=== PATIENT | male | born 1950 | race Caucasian/White ===

== ENCOUNTER 2016-06-28 08:30 | Outpatient (CLI) | payer MEDICARE, OTHER | END 2016-06-28 08:31 | disposition home or self-care (01) | DX: E11.22 Type 2 diabetes mellitus with diabetic chronic kidney disease (principal); I12.9 Hypertensive chronic kidney disease with stage 1 through stage 4 chronic kidney disease, or unspecified chronic kidney disease; N18.4 Chronic kidney disease, stage 4 (severe); Z13.9 Encounter for screening, unspecified; I25.10 Atherosclerotic heart disease of native coronary artery without angina pectoris; R80.9 Proteinuria, unspecified; I48.91 Unspecified atrial fibrillation ==

== ENCOUNTER 2016-07-15 11:12 | Outpatient (CLI) | payer MEDICARE, OTHER ==
[2016-07-15] MEDS ORDERED: ADENOSINE 90 MG/30 ML VIAL IVP ONE (11:45)
== END 2016-07-15 11:13 | disposition home or self-care (01) ==
DX: Z01.810 Encounter for preprocedural cardiovascular examination (principal); I12.9 Hypertensive chronic kidney disease with stage 1 through stage 4 chronic kidney disease, or unspecified chronic kidney disease; N18.4 Chronic kidney disease, stage 4 (severe); I48.92 Unspecified atrial flutter
CPT/HCPCS: 78452; 93017; A9500; J0153

== ENCOUNTER 2017-07-29 15:22 | Outpatient (CLI) | payer MEDICARE, OTHER ==
[2017-07-30 10:21] LABS: HEPATITIS B SURFACE ANTIGEN NON-REACTIVE (NON-REACTIVE)
[2017-07-30 10:22] LABS: HEPATITIS C ANTIBODY NON-REACTIVE (NON-REACTIVE)
== END 2017-07-29 15:23 | disposition home or self-care (01) ==
LOC: LAB 15:22
PROVIDERS: ATTEND Internal Medicine Nephrology
DX: B19.10 Unspecified viral hepatitis B without hepatic coma (principal); B17.10 Acute hepatitis C without hepatic coma
CPT/HCPCS: 36415; 86317; 86704; 86803; 87340

== ENCOUNTER 2017-10-31 10:19 | Outpatient (CLI) | payer MEDICARE, OTHER | END 2017-10-31 10:20 | disposition critical access hospital (66) | LOC: EMS 10:19 | PROVIDERS: ATTEND Surgery | DX: R53.1 Weakness (principal); R41.0 Disorientation, unspecified; R29.810 Facial weakness; R47.81 Slurred speech | CPT/HCPCS: A0425; A0427 ==

== ENCOUNTER 2017-10-31 10:44 | Emergency (ER) | payer MEDICARE, OTHER ==
--- NOTE | 2017-10-31 10:58 | ED Physician Documentation ---
PD HPI FOCAL NEURO - Stated complaint Stated Complaint: R SIDED WEAKNESS - Chief complaint Chief Complaint: Neuro - History obtained from History obtained from: Patient, Family, EMS - History of Present Illness Timing - onset: Enter time, Today Timing - duration: Minutes Timing - details: Abrupt onset, Still present Severity of deficit: Moderate Weakness: Face, Arm, Hand, Leg, Foot, Right Associated symptoms: Fall. No: Nausea / vomiting, Seizure, Syncope, Chest pain , Neck pain, Back pain, Fever Contributing factors: positive: Anticoagulated Baseline status: positive: A&OX3, ambulatory, indep Similar symptoms before: Has not had sx before - Additional information Additional information: 67-year-old diabetic male on dialysis was last seen normal by his at 7:00 this morning. When she returned to the house at approximately 9 AM she had found that he had gotten out of bed appeared to have clawed at the dresser to try and stand up, and was found on the floor of the bathroom. He did not have any signs of obvious trauma but has obvious right sided deficit. He is on Coumadin and is scheduled to have dialysis done today. Review of Systems Unable to obtain: AMS, Other (The history is taken from the patient with the family present to confirm .) Constitutional: denies: Fever Eyes: denies: Decreased vision Ears: denies: Ear pain Nose: denies: Rhinorrhea / runny nose, Congestion Throat: denies: Sore throat Cardiac: denies: Chest pain / pressure, Palpitations Respiratory: denies: Dyspnea, Cough GI: denies: Abdominal Pain, Nausea, Vomiting, Constipation, Diarrhea : denies: Dysuria Skin: denies: Rash Musculoskeletal: denies: Neck pain, Back pain, Extremity pain Neurologic: reports: Focal weakness (today), Difficulty speaking (today), Altered mental status (today). denies: Generalized weakness PD PAST MEDICAL HISTORY - Past Medical History Cardiovascular: Congestive heart failure, Coronary artery disease Respiratory: CPAP use Endocrine/Autoimmune: Type 2 diabetes GI: None : Renal insuffiency HEENT: None Psych: None Musculoskeletal: Osteoarthritis Derm: None - Past Surgical History General: Appendectomy Ortho: Knee replacement, Other Cardiovascular: Coronary stent - Present Medications Home Medications: Ambulatory Orders Medication Instructions Recorded Confirmed Aspirin [Aspirin EC] 81 mg PO DAILY 09/05/14 03/03/15 Atorvastatin Calcium [Lipitor] 40 mg PO DAILY 09/05/14 03/03/15 Fenofibrate [Fenoglide] 0 mg PO DAILY 09/05/14 03/03/15 Furosemide [Lasix] 0 mg PO ONCE 09/05/14 03/03/15 Insulin Glargine [Lantus] 80 units SQ BID 09/05/14 03/03/15 Lisinopril 5 mg ORAL DAILY 09/05/14 03/03/15 Metoprolol Succinate 0 mg PO DAILY 09/05/14 03/03/15 Spironolactone 0 mg PO DAILY 09/05/14 03/03/15 oxyCODONE [Roxicodone] 5 mg PO DAILY PRN 12/02/14 03/03/15 - Allergies Allergies/Adverse Reactions: Allergies Allergy/AdvReac Type Severity Reaction Status Date / Time No Known Drug Allergies Allergy Unverified 09/05/14 13:08 - Social History Smoking Status: Former smoker PD ED PE NORMAL - Vitals Vital signs reviewed: Yes (hypertensive ) - General General: No acute distress, Well developed/nourished - HEENT HEENT: Atraumatic, PERRL, EOMI, Other (With deep palpation of the scalp there is no obvious sign of trauma. ) - Neck Neck: Supple, no meningeal sign, No bony TTP - Cardiac Cardiac: RRR, No murmur - Respiratory Respiratory: No respiratory distress, Clear bilaterally, Other (dminished breath sounds with poor effort. ) - Abdomen Abdomen: Soft, Non tender - Back Back: No CVA TTP, No spinal TTP - Derm Derm: Normal color, Warm and dry, No rash - Extremities Extremities: No deformity, No edema - Neuro Neuro: Other (The patient has a right facial droop, right upper ext weakness that is worse than the lower ext weakness. There is inattention ) NIHSS - Time Time: 10:50 - Level of Consciousness Level of consciousness: (0) Alert, Keenly responsive LOC Questions: (1) Answers one Q correctly LOC Commands: (1) Performs one correctly - Gaze Best Gaze: (0) Normal - Visual Visual: (0) No loss - Facial Palsy Facial Palsy: (1) Minor paralysis - Motor Arms (both separate) Motor Arm (right): (3) No effort against gravity Motor Arm (left): (0) No drift - Motor Legs (both separate) Motor Leg (right): (1) Drift Motor Leg (left): (0) No drift - Limb Ataxia Limb Ataxia: (1) Present in 1 limb - Sensory Sensory: (0) Normal - Best Language Best Language: (1) [id number] - Dysarthria Dysarthria: (0) Normal - Extinction and Inattention (formally neg Extinction and inattention: (1) Visual,tactile,auditory,spatial, or personal inattention - Total Score/Results Total Score/Result: 10 Results - Vitals Vitals: Vital Signs - 24 hr 10/31/17 10/31/17 10:45 11:16 Temperature 36.2 C L Heart Rate 84 66 Respiratory 21 18 Rate Blood Pressure 144/88 H 142/75 H O2 Saturation 94 71 L Oxygen O2 Source Room air - EKG (time done) 1145 Rate: Rate (enter#) (71) Rhythm: Atrial fibrillation Compare to prior EKG: Old EKG unavailable Computer interpretation: Disagree with computer (I do not see anterior q waves) - Labs Labs: Laboratory Tests 10/31/17 10/31/17 10/31/17 11:28 11:28 11:28 WBC 8.0 RBC 3.47 L Hgb 12.2 L Hct 36.5 L MCV 105.1 H MCH 35.1 H MCHC 33.4 RDW 14.7 Plt Count 197 MPV 9.4 Neut # (Auto) 5.5 Lymph # (Auto) 1.2 L Hemphill # (Auto) 0.8 Eos # (Auto) 0.3 Baso # (Auto) 0.1 Absolute Nucleated RBC 0.00 Nucleated RBC % 0.0 PT INR Sodium 135 Potassium 4.8 Chloride 102 Carbon Dioxide 22 Anion Gap 11.0 BUN 64 H Creatinine 5.9 H Estimated GFR (MDRD) 10 L Glucose 290 H Calcium 8.6 Total Bilirubin 0.6 AST 26 ALT 28 Alkaline Phosphatase 36 L Troponin I < 0.04 Total Protein 6.6 L Albumin 3.2 Globulin 3.4 Albumin/Globulin Ratio 0.9 L Lipase 59 H 10/31/17 11:55 WBC RBC Hgb Hct MCV MCH MCHC RDW Plt Count MPV Neut # (Auto) Lymph # (Auto) Hemphill # (Auto) Eos # (Auto) Baso # (Auto) Absolute Nucleated RBC Nucleated RBC % PT 24.7 H INR 2.3 H Sodium Potassium Chloride Carbon Dioxide Anion Gap BUN Creatinine Estimated GFR (MDRD) Glucose Calcium Total Bilirubin AST ALT Alkaline Phosphatase Troponin I Total Protein Albumin Globulin Albumin/Globulin Ratio Lipase - Rads (name of study) CT head without Radiology: Prelim report reviewed (Impression: Generalized age-related cortical atrophic changes without evidence of acute intracranial abnormality.), EMP read indepedently, See rad report Procedures - IVC sono (time) 1245 Bedside IVC sono: IVC measures (cm) (1.67), Euvolemia PD MEDICAL DECISION MAKING - ED course Complexity details: reviewed old records, reviewed results, re-evaluated patient , considered differential, d/w patient, d/w family ED course: 67-year-old diabetic male on dialysis and with a history of atrial fibrillation on Coumadin has developed acute right-sided weakness and expressive aphasia. He is therapeutic on his Coumadin he is not a candidate for TPA. He does appear to have normal volume on interrogation of the inferior vena cava despite his diabetes being out of control. The patient does score over 10 on his NIH stroke scale and I discussed his stay case with Dr. Topete at [facility] in [place] and he will accept the patient in transfer for poststroke care and requested we contact Dr. Abdi regarding the patient's dialysis. The patient has improvement in his symptoms after arrival to the ED. - Sepsis Event Vital Signs: Vital Signs - 24 hr 10/31/17 10/31/17 10:45 11:16 Temperature 36.2 C L Heart Rate 84 66 Respiratory 21 18 Rate Blood Pressure 144/88 H 142/75 H O2 Saturation 94 71 L Oxygen O2 Source Room air Departure - Departure Disposition: 02 Transfer Acute Care Hosp Clinical Impression: Cerebrovascular accident (CVA) Qualifiers: CVA mechanism: unspecified Qualified Code(s): I63.9 - Cerebral infarction, unspecified Condition: Stable Discharge Date/Time: 10/31/17 14:21
--- NOTE | 2017-10-31 11:35 | CT Preliminary Report ---
Exam: CT HEAD W/O IMPRESSION: Generalized age-related cortical atrophic changes without evidence of acute intracranial abnormality. [facility] SITE ID: [id number]
--- NOTE | 2017-10-31 11:35 | CT Report ---
EXAM: CT HEAD EXAM DATE: 10/31/2017 11:09 AM. CLINICAL HISTORY: R SIDED deficit on coumadin. COMPARISON: None. TECHNIQUE: Multiaxial CT images were obtained from the foramen magnum to the vertex. Reformats: Coron al. IV contrast: None. In accordance with CT protocol optimization, one or more of the following dose reduction techniques w ere utilized for this exam: automated exposure control, adjustment of mA and/or KV based on patient s ize, or use of iterative reconstructive technique. FINDINGS: Parenchyma: No intraparenchymal hemorrhage. No evidence of mass, midline shift, or CT findings of acu te infarction. Joseph-white differentiation is distinct. Diffuse chronic microangiopathic white matter changes are evident. Extraaxial Spaces: Normal for age. No subdural or epidural collections identified. Ventricles: The ventricles and cortical sulci are enlarged, consistent with age-related tissue loss. Sinuses and orbits: Right maxillary retention cyst or mucosal thickening left maxillary sinus Imaged orbits, and mastoids show no significant abnormality. Bones: No evidence of fracture or calvarial defect. Other: None. IMPRESSION: Generalized age-related cortical atrophic changes without evidence of acute intracranial abnormality. [facility] Referring Provider Line: [phone] SITE ID: [id number]
[2017-10-31 11:42] LABS: BASOPHILS # (AUTO) 0.1 10^3/uL (0.0-0.1); BASOPHILS % (AUTO) 1.1 %; EOSINOPHILS # (AUTO) 0.3 10^3/uL (0.0-0.7); EOSINOPHILS % (AUTO) 3.8 %; HGB - HEMOGLOBIN 12.2 g/dL (14.0-18.0); LYMPHOCYTES # (AUTO) 1.2 10^3/uL (1.5-3.5); LYMPHOCYTES % (AUTO) 15.7 %; MEAN CORPUSCULAR HEMOGLOBIN 35.1 pg (27.0-31.0); MEAN CORPUSCULAR HGB CONC 33.4 g/dL (32.0-36.0); MEAN CORPUSCULAR VOLUME 105.1 fL (80.0-94.0); MEAN PLATELET VOLUME 9.4 fL (7.4-11.4); MONOCYTES # (AUTO) 0.8 10^3/uL (0.0-1.0); NEUTROPHILS # (AUTO) 5.5 10^3/uL (1.5-6.6); NEUTROPHILS % (AUTO) 69.4 %; PLT - PLATELET COUNT 197 10^3/uL (130-450); RED BLOOD COUNT 3.47 10^6/uL (4.70-6.10); RED CELL DISTRIBUTION WIDTH 14.7 % (12.0-15.0)
[2017-10-31 11:46] VITALS: BP 142/75
[2017-10-31 12:05] LABS: ALBUMIN 3.2 g/dL (3.2-5.5); ALBUMIN/GLOBULIN RATIO 0.9 (1.0-2.2); BILIRUBIN,TOTAL 0.6 mg/dL (0.2-1.0); CALCIUM 8.6 mg/dL (8.5-10.3); CREATININE 5.9 mg/dL (0.6-1.2); TOTAL PROTEIN 6.6 g/dL (6.7-8.2)
[2017-10-31 12:08] LABS: INR 2.3 (0.8-1.2); PT - PROTHROMBIN TIME 24.7 secs (9.9-12.6)
== END 2017-10-31 14:21 | disposition short-term general hospital (02) ==
LOC: EDUNIT# → ED 10:44
DX: I63.9 Cerebral infarction, unspecified (principal); E86.0 Dehydration; E11.9 Type 2 diabetes mellitus without complications; I25.10 Atherosclerotic heart disease of native coronary artery without angina pectoris; I48.91 Unspecified atrial fibrillation; Z79.4 Long term (current) use of insulin; Z95.5 Presence of coronary angioplasty implant and graft; Z96.659 Presence of unspecified artificial knee joint; Z87.891 Personal history of nicotine dependence
CPT/HCPCS: 36415; 70450; 80053; 83690; 84484; 85025; 85610; 93005; 99285

== ENCOUNTER 2017-10-31 14:27 | Outpatient (CLI) | payer MEDICARE, OTHER | END 2017-10-31 14:28 | disposition home or self-care (01) | LOC: EMS 14:27 | PROVIDERS: ATTEND Surgery | DX: I63.9 Cerebral infarction, unspecified (principal); Z99.2 Dependence on renal dialysis | CPT/HCPCS: A0170; A0425; A0426 ==

== ENCOUNTER 2018-01-01 15:58 | Emergency (ER) | payer MEDICARE, OTHER ==
--- NOTE | 2018-01-01 16:50 | ED Physician Documentation ---
History of Present Illness - Stated complaint Stated Complaint: BLISTER R FOOT - Chief complaint Chief Complaint: Ext Problem - History obtained from History obtained from: Patient - History of Present Illness Timing: How many weeks ago (2) Pain level max: 0 Pain level now: 0 Improved by: nothing Worsened by: nothing - Additonal information Additional information: 67 year old male with R ankle blister for 2 weeks. he is a diabetic and on dialysis. states the blister ruptured today. Sees wound care at [facility]. states drained clear liquid today. Family placed ointment over the wound today. No fevers. Recently was placed on doxycycline for wound infection. Review of Systems Constitutional: denies: Fever, Chills GI: denies: Vomiting Skin: denies: Rash Musculoskeletal: denies: Neck pain, Back pain Neurologic: denies: Headache PD PAST MEDICAL HISTORY - Past Medical History Cardiovascular: Congestive heart failure, Coronary artery disease Respiratory: CPAP use Endocrine/Autoimmune: Type 2 diabetes GI: None : Renal insuffiency HEENT: None Psych: None Musculoskeletal: Osteoarthritis Derm: None - Past Surgical History Past Surgical History: Yes General: Appendectomy Ortho: Knee replacement, Other Cardiovascular: Coronary stent - Present Medications Home Medications: Ambulatory Orders Medication Instructions Recorded Confirmed Aspirin [Aspirin EC] 81 mg PO DAILY 09/05/14 03/03/15 Atorvastatin Calcium [Lipitor] 40 mg PO DAILY 09/05/14 03/03/15 Fenofibrate [Fenoglide] 0 mg PO DAILY 09/05/14 03/03/15 Furosemide [Lasix] 0 mg PO ONCE 09/05/14 03/03/15 Insulin Glargine [Lantus] 80 units SQ BID 09/05/14 03/03/15 Lisinopril 5 mg ORAL DAILY 09/05/14 03/03/15 Metoprolol Succinate 0 mg PO DAILY 09/05/14 03/03/15 Spironolactone 0 mg PO DAILY 09/05/14 03/03/15 oxyCODONE [Roxicodone] 5 mg PO DAILY PRN 12/02/14 03/03/15 - Allergies Allergies/Adverse Reactions: Allergies Allergy/AdvReac Type Severity Reaction Status Date / Time No Known Drug Allergies Allergy Verified 01/01/18 16:14 - Social History Does the pt smoke?: No Smoking Status: Never smoker PD ED PE NORMAL - Vitals Vital signs reviewed: Yes - General General: Alert and oriented X 3 - HEENT HEENT: Moist mucous membranes - Neck Neck: Supple, no meningeal sign - Derm Derm: Warm and dry - Extremities Extremities: Other (R lateral malleolus, small open blister. NVI. no signs of infection. 0.2cm x 0.2cm) - Neuro Neuro: Alert and oriented X 3 - Psych Psych: Normal mood, Normal affect Results - Vitals Vitals: Vital Signs - 24 hr 01/01/1818 01/01/18 16:08 16:37 17:10 Temperature 37.5 C 37.2 C Heart Rate 84 85 Respiratory 18 18 Rate Blood Pressure 147/63 H 124/41 L O2 Saturation 100 100 Oxygen O2 Source Room air PD MEDICAL DECISION MAKING - ED course Complexity details: considered differential, d/w patient, d/w family ED course: Patient is a 67-year-old male with a small the right ankle. No evidence of infection. The wound is approximately 0.2 cm. Mepitel is placed over the area and bacitracin applied. Warnings of infection and instructions on wound care given at bedside. Patient and family counseled regarding signs and symptoms for which I believe and urgent re-evaluation would be necessary. Patient with good understanding of and agreement to plan and is comfortable going home at this time This document was made in part using voice recognition software. While efforts are made to proofread this document, sound alike and grammatical errors may occur. - Sepsis Event Vital Signs: Vital Signs - 24 hr 01/01/1818 01/01/18 16:08 16:37 17:10 Temperature 37.5 C 37.2 C Heart Rate 84 85 Respiratory 18 18 Rate Blood Pressure 147/63 H 124/41 L O2 Saturation 100 100 Oxygen O2 Source Room air Departure - Departure Disposition: 01 Home, Self Care Clinical Impression: Blister Condition: Good Instructions: ED Wound Care Follow-Up: JEVON LOUIS MD [Primary Care Provider] - Within 1 week Comments: You can use the mupirocin twice a day over the wound. Leave the mepitel in place until seen by wound care. Return if you notice redness, swelling or drainage from the wound. Discharge Date/Time: 01/01/18 17:14
[2018-01-01] MEDS ORDERED: BACITRACIN OINT TOP STA (17:03)
[2018-01-01 17:11] VITALS: BP 124/41
== END 2018-01-01 17:14 | disposition home or self-care (01) ==
LOC: ED 15:58
DX: S90.521A Blister (nonthermal), right ankle, initial encounter (principal)
CPT/HCPCS: 99282; 99283; A9270

== ENCOUNTER 2019-05-14 09:35 | Outpatient (CLI) | payer MEDICARE, OTHER ==
--- NOTE | 2019-05-15 07:00 | CT Report ---
Reason: LT SHOULDER PAIN Procedure Date: 05/14/2019 Accession Number: [id number] / [id number] Procedure: CT - UPPER EXTREMITY WO - LT CPT Code: Final Report FULL RESULT: EXAM: LEFT ELBOW CT WITHOUT CONTRAST. EXAM DATE: 05/14/2019 11:37 AM. CLINICAL HISTORY: Left shoulder pain chronically. Preoperative for shoulder arthroplasty. COMPARISON: None. TECHNIQUE: Thin-section axial images were acquired of the elbow without contrast. Post-processing: Coronal and sagittal reformats. Other: None. In accordance with CT protocol optimization, one or more of the following dose reduction techniques were utilized for this exam: automated exposure control, adjustment of mA and/or KV based on patient size, or use of iterative reconstructive technique. FINDINGS: Bones: Moderate osteopenia limits evaluation for subtle bony abnormalities. The patient has volume loss of the glenoid due to [id number] articulation. There is acquired retroversion of 22 degrees. No fractures. Joints: The glenohumeral joint demonstrates severe joint space narrowing and osteophyte formation. Mild periarticular sclerosis present. The acromioclavicular joint demonstrates severe osteoarthropathy with bony spurring and capsular calcification. In particular, there is a prominent inferiorly directed osteophyte from the distal clavicle. Multiple loose bodies are in the glenohumeral joint. Musculature: Normal. No fatty atrophy. Other: None. IMPRESSION: 1. Severe glenohumeral osteoarthritis. 2. Severe acromioclavicular osteoarthropathy. [facility]
== END 2019-05-14 09:36 | disposition home or self-care (01) ==
LOC: DI 09:35
PROVIDERS: ATTEND Orthopaedic Surgery
DX: M19.012 Primary osteoarthritis, left shoulder (principal)

== ENCOUNTER 2019-10-06 18:29 | Outpatient (CLI) | payer MEDICARE, OTHER | END 2019-10-06 18:30 | disposition critical access hospital (66) | LOC: EMS 18:29 | PROVIDERS: ATTEND Surgery | DX: S09.90XA Unspecified injury of head, initial encounter (principal); S01.511A Laceration without foreign body of lip, initial encounter; W01.110A Fall on same level from slipping, tripping and stumbling with subsequent striking against sharp glass, initial encounter; W22.8XXA Striking against or struck by other objects, initial encounter | CPT/HCPCS: A0425; A0429 ==

== ENCOUNTER 2019-10-06 18:51 | Emergency (ER) | payer MEDICARE, OTHER ==
[2019-10-06] MEDS ORDERED: LIDOCAINE 2%-EPI 1:100000 20 ML MDV SUBQ STA (19:21)
[2019-10-06] MEDS ORDERED: TRANEXAMIC ACID 1,000 MG/10 ML VIAL NAS STA (19:42)
--- NOTE | 2019-10-06 20:03 | CT Report ---
Reason: fall, facial injuries, LOC Procedure Date: 10/06/2019 Accession Number: [id number] / [id number] Procedure: CT - HEAD WO CPT Code: Final Report FULL RESULT: EXAM: CT HEAD EXAM DATE: 10/06/2019 07:30 PM. CLINICAL HISTORY: Fall. Facial injuries. Loss of consciousness. COMPARISON: HEAD W/O 10/31/2017 10:59 AM. TECHNIQUE: Multiaxial CT images were obtained from the foramen magnum to the vertex. Reformats: Sagittal and coronal. IV contrast: None. In accordance with CT protocol optimization, one or more of the following dose reduction techniques were utilized for this exam: automated exposure control, adjustment of mA and/or KV based on patient size, or use of iterative reconstructive technique. FINDINGS: Parenchyma: No intraparenchymal hemorrhage. Old cortical infarct, upper left frontal lobe. No evidence of mass, midline shift, or CT findings of acute infarction. Joseph-white differentiation is distinct. Stable mild chronic microangiopathic white matter changes are evident. Extraaxial Spaces: Normal for age. No subdural or epidural collections identified. Ventricles: The ventricles and cortical sulci are prominent, consistent with age-related tissue loss. Sinuses and orbits: Imaged paranasal sinuses, orbits, and mastoids show no significant abnormality. Bones: No evidence of fracture or calvarial defect. Other: None. IMPRESSION: Stable age-related cortical atrophic changes without evidence of acute intracranial abnormality. [facility]
[2019-10-06] MEDS ORDERED: LORazepam 2 MG/ML VIAL IVP STA (20:21)
[2019-10-06] MEDS ORDERED: MORPHINE 2 MG/ML CARPUJECT IVP STA (20:21)
--- NOTE | 2019-10-06 20:23 | CT Report ---
Reason: fall, facial injuries Procedure Date: 10/06/2019 Accession Number: [id number] / [id number] Procedure: CT - MAXILLOFACIAL WO CPT Code: Final Report FULL RESULT: EXAM: CT MAXILLOFACIAL WITHOUT CONTRAST EXAM DATE: 10/06/2019 07:49 PM. CLINICAL HISTORY: Fall, facial injuries. COMPARISONS: HEAD W/O 10/31/2017 10:59 AM. TECHNIQUE: Thin-section axial images were acquired of the face without contrast. Post-processing: Coronal and sagittal reformats. Other: None. In accordance with CT protocol optimization, one or more of the following dose reduction techniques were utilized for this exam: automated exposure control, adjustment of mA and/or KV based on patient size, or use of iterative reconstructive technique. FINDINGS: Soft Tissue: The infratemporal fossa and parapharyngeal spaces are unremarkable. Right cheek subcutaneous air collections noted. Extensive small artery calcifications noted likely secondary to diabetic vasculopathy. Orbits: Symmetric and unremarkable. Bones: There is a fracture through the base of the anterior nasal spine. A nondisplaced left nasal bone fracture is also seen. No other facial bone fractures. Temporomandibular Joints: There is slight anterior subluxation of the temporomandibular joints. Sinuses: Normal. No mucosal thickening or fluid levels. Other: None. IMPRESSION: Nondisplaced base of anterior nasal spine and left nasal bone fractures. [facility]
[2019-10-06] MEDS ORDERED: LORazepam 2 MG/ML VIAL ONE (20:26)
[2019-10-06] MEDS ORDERED: MORPHINE 2 MG/ML CARPUJECT ONE (20:26)
[2019-10-06 20:48] LABS: BASOPHILS # (AUTO) 0.1 10^3/uL (0.0-0.1); BASOPHILS % (AUTO) 0.7 %; EOSINOPHILS # (AUTO) 0.3 10^3/uL (0.0-0.7); EOSINOPHILS % (AUTO) 3.1 %; LYMPHOCYTES # (AUTO) 1.4 10^3/uL (1.5-3.5); LYMPHOCYTES % (AUTO) 12.6 %; MEAN CORPUSCULAR HEMOGLOBIN 35.1 pg (27.0-31.0); MEAN CORPUSCULAR HGB CONC 32.8 g/dL (32.0-36.0); MEAN PLATELET VOLUME 11.2 fL (7.4-11.4); MONOCYTES # (AUTO) 1.1 10^3/uL (0.0-1.0); MONOCYTES % (AUTO) 9.6 %; NEUTROPHILS # (AUTO) 8.1 10^3/uL (1.5-6.6); NEUTROPHILS % (AUTO) 73.5 %; PLT - PLATELET COUNT 233 10^3/uL (130-450); RED BLOOD COUNT 2.85 10^6/uL (4.70-6.10)
[2019-10-06 21:01] LABS: ALBUMIN 3.7 g/dL (3.2-5.5); ALBUMIN/GLOBULIN RATIO 1.4 (1.0-2.2); BILIRUBIN,TOTAL 0.8 mg/dL (0.2-1.0); CALCIUM 8.2 mg/dL (8.5-10.3); TOTAL PROTEIN 6.4 g/dL (6.7-8.2)
--- NOTE | 2019-10-06 21:27 | ED Physician Documentation ---
History of Present Illness - Stated complaint Stated Complaint: GLF, FACIAL INJURY, LOC, LEG WEAKNESS - Chief complaint Chief Complaint: Trauma Hd/Nk - History obtained from History obtained from: Patient, EMS - History of Present Illness Timing: Today Pain level max: 6 Pain level now: 5 - Additonal information Additional information: 69-year-old male states that he tripped and fell today crashing through a pain of glass. Causing lacerations to his mouth. No neck pain. No back pain. No focal neurological deficits. He states he has had increasing numbness to the right foot for some time and feels that it is starting to turn. He had a fusion on this foot several years ago. Review of Systems Ten Systems: 10 systems reviewed and negative Constitutional: denies: Fever, Chills Ears: denies: Ear pain Nose: denies: Rhinorrhea / runny nose, Congestion Throat: denies: Sore throat Cardiac: denies: Chest pain / pressure Respiratory: denies: Cough GI: denies: Abdominal Pain, Nausea, Vomiting, Diarrhea Skin: denies: Rash Musculoskeletal: denies: Back pain Neurologic: denies: Focal weakness, Numbness, Confused, Altered mental status, LOC PD PAST MEDICAL HISTORY - Past Medical History Past Medical History: Yes Cardiovascular: Congestive heart failure, Coronary artery disease Respiratory: CPAP use Endocrine/Autoimmune: Type 2 diabetes GI: None : Dialysis, Renal insuffiency HEENT: None Psych: None Musculoskeletal: Osteoarthritis Derm: None - Past Surgical History Past Surgical History: Yes General: Appendectomy Ortho: Knee replacement, Other Cardiovascular: Coronary stent - Present Medications Home Medications: Ambulatory Orders Medication Instructions Recorded Confirmed Aspirin [Aspirin EC] 81 mg PO DAILY 09/05/14 03/03/15 Atorvastatin Calcium [Lipitor] 40 mg PO DAILY 09/05/14 03/03/15 Fenofibrate [Fenoglide] 0 mg PO DAILY 09/05/14 03/03/15 Furosemide [Lasix] 0 mg PO ONCE 09/05/14 03/03/15 Insulin Glargine [Lantus] 80 units SQ BID 09/05/14 03/03/15 Metoprolol Succinate 0 mg PO DAILY 09/05/14 03/03/15 Spironolactone 0 mg PO DAILY 09/05/14 03/03/15 lisinopriL [Lisinopril] 5 mg ORAL DAILY 09/05/14 03/03/15 oxyCODONE [Roxicodone] 5 mg PO DAILY PRN 12/02/14 03/03/15 Cephalexin [Keflex] 500 mg PO BID #14 capsule 10/06/19 Chlorhexidine Gluconate 15 ml MM BID 14 Days #1 mouthwash 10/06/19 amLODIPine [Norvasc] 10 mg PO DAILY 10/06/19 10/06/19 - Allergies Allergies/Adverse Reactions: Allergies Allergy/AdvReac Type Severity Reaction Status Date / Time No Known Drug Allergies Allergy Verified 01/01/18 16:14 - Social History Does the pt smoke?: No Smoking Status: Never smoker Does the pt drink ETOH?: No Does the pt have substance abuse?: No - Immunizations Immunizations are current?: Yes PD ED PE NORMAL - Vitals Vital signs reviewed: Yes - General General: Alert and oriented X 3, No acute distress - HEENT HEENT: Atraumatic, PERRL, Moist mucous membranes, Other (Complex laceration to the upper and lower lips. Bleeding present. Mild tenderness across the facial bones. No scalp hematomas.) - Neck Neck: Supple, no meningeal sign - Cardiac Cardiac: RRR - Respiratory Respiratory: No respiratory distress, Clear bilaterally - Derm Derm: Warm and dry - Neuro Neuro: Alert and oriented X 3, care rep 2-12 intact, No motor deficit, No sensory deficit Motor: Obeys Commands Verbal: Oriented - Psych Psych: Normal mood, Normal affect Results - Vitals Vitals: Vital Signs - 24 hr 10/06/19 10/06/19 18:55 22:08 Temperature 36.5 C Heart Rate 79 68 Respiratory 18 18 Rate Blood Pressure 144/101 H 139/59 H O2 Saturation 99 98 Oxygen O2 Source Room air - Labs Labs: Laboratory Tests 10/06/19 10/06/19 10/06/19 20:40 20:40 21:57 WBC 11.0 H RBC 2.85 L Hgb 10.0 L Hct 30.5 L MCV 107.0 H MCH 35.1 H MCHC 32.8 RDW 13.0 Plt Count 233 MPV 11.2 Neut # (Auto) 8.1 H Lymph # (Auto) 1.4 L [place] # (Auto) 1.1 H Eos # (Auto) 0.3 Baso # (Auto) 0.1 Absolute Nucleated RBC 0.00 Nucleated RBC % 0.0 Sodium 139 Potassium 4.5 Chloride 100 L Carbon Dioxide 24 Anion Gap 15.0 H BUN 57 H Creatinine 6.0 H Estimated GFR (MDRD) 9 L Glucose 199 H Calcium 8.2 L Total Bilirubin 0.8 AST 32 ALT 28 Alkaline Phosphatase 40 L Total Protein 6.4 L Albumin 3.7 Globulin 2.7 Albumin/Globulin Ratio 1.4 Lipase 44 Urine Color YELLOW Urine Clarity CLEAR Urine pH 7.0 Ur Specific [place] 1.015 Urine Protein 100 H Urine Glucose (UA) 500 H Urine Ketones NEGATIVE Urine Occult Blood MODERATE H Urine Nitrite NEGATIVE Urine Bilirubin NEGATIVE Urine Urobilinogen 0.2 (NORMAL) Ur Leukocyte Esterase NEGATIVE Urine RBC 6-10 H Urine WBC 0-3 Ur Squamous Epith Cells RARE Squamous Urine Bacteria Rare Urine Casts 6-10 Hyaline Casts Ur Microscopic Review INDICATED Urine Culture Comments NOT INDICATED - Rads (name of study) Head CT Radiology: Prelim report reviewed, EMP read contemporaneously, See rad report (Stable age-related cortical atrophic changes without evidence of acute intracranial abnormality. ) Maxillofacial CT Radiology: Prelim report reviewed, EMP read contemporaneously, See rad report (Nondisplaced base of anterior nasal spine and left nasal bone fractures. ) PD MEDICAL DECISION MAKING - ED course Complexity details: reviewed results, re-evaluated patient, considered differential, d/w patient, d/w programmer analyst consultant (Dr. Smith [facility]) ED course: Patient with a complicated intraoral laceration, upper and lower lips. OMFS was consulted, Dr. Smith came and repaired the lacerations. Patient tolerated well. Will place on Keflex as well as chlorhexidine rinses. Tetanus is up-to-date. No acute findings on CT scan or x-ray. Warnings of infection and instructions on wound care given at bedside. Also counseled on how to minimize scarring. Patient counseled regarding signs and symptoms for which I believe and urgent re-evaluation would be necessary. Patient with good understanding of and agreement to plan and is comfortable going home at this time This document was made in part using voice recognition software. While efforts are made to proofread this document, sound alike and grammatical errors may occur. Departure - Departure Disposition: 01 Home, Self Care Clinical Impression: Lip laceration Qualifiers: Encounter type: initial encounter Qualified Code(s): S01.511A - Laceration without foreign body of lip, initial encounter Intraoral laceration Qualifiers: Encounter type: initial encounter Qualified Code(s): S01.512A - Laceration without foreign body of oral cavity, initial encounter Nasal fracture Qualifiers: Encounter type: initial encounter Fracture type: closed Qualified Code(s): S02.2XXA - Fracture of nasal bones, initial encounter for closed fracture Condition: Good Instructions: ED Laceration Mouth Follow-Up: your,doctor in 1 week [Other] KADEN SMITH [Physician No Access] - Within 1 week Prescriptions: Cephalexin [Keflex] 500 mg PO BID #14 capsule Chlorhexidine Gluconate 15 ml MM BID 14 Days #1 mouthwash Comments: Follow-up with Dr. Smith within 1 week for repeat evaluation of your wounds and stitches. Call his office for an appointment. Return if you worsen. Take all antibiotics until gone. Discharge Date/Time: 10/06/19 22:10
--- NOTE | 2019-10-06 21:44 | CONSULTATION NOTE ---
Referring Provider Name of Referring Provider:: Arsalan Mathews Consult Date: 10/06/19 Chief Complaint - Chief Complaint Chief Complaint: Bleeding from mouth History of Present Illness - Admitted From Admitted From:: ER - History Obtained From Records Reviewed: Yes History obtained from: Dr. Mathews and Guicho History - Past Medical History Cardiovascular: reports: Congestive heart failure, Coronary artery disease Respiratory: reports: CPAP use Endocrine/Autoimmune: reports: Type 2 diabetes GI: reports: None : reports: Dialysis, Renal insuffiency HEENT: reports: None Psych: reports: None Musculoskeletal: reports: Osteoarthritis Derm: reports: None MRSA Hx?: No - Past Surgical History General: reports: Appendectomy Ortho: reports: Knee replacement, Other Cardiovascular: reports: Coronary stent Meds/Allgy - Home Medications Home Medications: Ambulatory Orders Medication Instructions Recorded Confirmed Aspirin [Aspirin EC] 81 mg PO DAILY 09/05/14 03/03/15 Atorvastatin Calcium [Lipitor] 40 mg PO DAILY 09/05/14 03/03/15 Fenofibrate [Fenoglide] 0 mg PO DAILY 09/05/14 03/03/15 Furosemide [Lasix] 0 mg PO ONCE 09/05/14 03/03/15 Insulin Glargine [Lantus] 80 units SQ BID 09/05/14 03/03/15 Metoprolol Succinate 0 mg PO DAILY 09/05/14 03/03/15 Spironolactone 0 mg PO DAILY 09/05/14 03/03/15 lisinopriL [Lisinopril] 5 mg ORAL DAILY 09/05/14 03/03/15 oxyCODONE [Roxicodone] 5 mg PO DAILY PRN 12/02/14 03/03/15 Cephalexin [Keflex] 500 mg PO BID #14 capsule 10/06/19 Chlorhexidine Gluconate 15 ml MM BID 14 Days #1 mouthwash 10/06/19 Chlorhexidine Gluconate [Peridex] 15 ml MM ACHS #1 bottle 10/06/19 amLODIPine [Norvasc] 10 mg PO DAILY 10/06/19 10/06/19 - Allergies Allergies/Adverse Reactions: Allergies Allergy/AdvReac Type Severity Reaction Status Date / Time No Known Drug Allergies Allergy Verified 01/01/18 16:14 Review of Systems - Ears, Nose & Throat Ears, Nose & Throat: reports: Other (bleeding coughing and gaggin on blood in throat) Exam - Vital Signs Reviewed Vital Signs: Yes Vital Signs: Vital Signs x48h Temp Pulse Resp BP Pulse Ox 10/06/19 18:55 36.5 C 79 18 144/101 H 99 - Physical Exam General Appearance: positive: No acute distress Eyes Bilateral: positive: PERRL, EOMI ENT: positive: Other (Right upper lip complex full thickness laceration, 4cm total length Right lower lip complex full thickness laceration, 2 cm total length Active bleeding from the upper lip. The laceration skives superiorly and posteriorly and involves the alveolus. Significant ecchymosis.) Neck: positive: Nml inspection, No JVD Respiratory: positive: Chest non-tender, No respiratory distress Cardiovascular: positive: Regular rate & rhythm Abdomen: positive: Non-tender, No distention Skin: positive: Color nml Extremities: positive: Other (AV fistula LUE, for dialysis) Neurologic/Psychiatric: positive: Oriented x3, CN's nml (2-12) (Cranial nerves are intact with exception of R V2 numbness) Conclusion/Plan - Diagnosis Diagnosis: Facial lacerations - Plan Plan: CT max/face: There is a mildly displaced fracture of the anterior nasal spine. No AF levels in the sinuses. There is moderate subq air in the R maxilla associated w/ the lacerations. No foreign bodies. No other fractures noted. \ Assessment: 69 yo M s/p GLF sustaining the following maxillofacial injuries: 1. 4cm complex full thickness laceration of the R upper lip, involving the gaston and intraoral mucosa 2. 2 cm complex full thickness laceration of the R lower lip, involving the gaston and intraoral mucosa 3. Mildly displaced fracture of the anterior nasal spine 4. Uncontrolled bleeding from the right maxillary wound P: Bedside closure of lacerations with local anesthesia and control of bleeding. No operative management of the ANS anticipated. - ok for d/c to home after lac repair from OMFS standpoint - f/u in 1-2 weeks in my clinic for suture removal and reeval - PO abx - chlorhexidine mouthrinse bid Thank you for including me in the care of this patient, please feel free to call with any questions. Filippo Dill DDS [phone] - Lab Results Fish Bones: 10/06/19 20:40 10/06/19 20:40
[2019-10-06 22:08] VITALS: BP 139/59
[2019-10-06 22:11] LABS: BILIRUBIN,URINE NEGATIVE (NEGATIVE); GLUCOSE, URINE (UA) 500 mg/dL (NEGATIVE); KETONES,URINE (UA) NEGATIVE (NEGATIVE); LEUKOCYTE ESTERASE, URINE NEGATIVE (NEGATIVE); NITRITE,URINE NEGATIVE (NEGATIVE); OCCULT BLOOD,URINE MODERATE (NEGATIVE); PROTEIN,URINE 100 mg/dL (NEGATIVE); UROBILINOGEN,URINE 0.2 (NORMAL) E.U./dL (NORMAL)
[2019-10-06 22:12] LABS: CLARITY,URINE CLEAR (CLEAR)
[2019-10-06 22:18] LABS: BACTERIA,URINE Rare /HPF (None Seen); CASTS, URINE 6-10 Hyaline Casts /LPF; SQUAMOUS EPITHELIAL CELL,UR RARE Squamous (<= Few)
--- NOTE | 2019-10-07 04:24 | OPERATIVE REPORT ---
DATE OF SERVICE: 10/06/2019 Physician: Filippo Dill DDS PREOPERATIVE DIAGNOSES 1. A 4 cm, full thickness, complex laceration of the right upper lip involving the vermilion border and mucosa. 2. A 2 cm full thickness, complex laceration of the right lower lip involving the vermilion and intr aoral mucosa. 3. Uncontrolled bleeding from the right maxillary wound. POSTOPERATIVE DIAGNOSES 1. A 4 cm, full thickness, complex laceration of the right upper lip involving the vermilion border and mucosa. 2. A 2 cm full thickness, complex laceration of the right lower lip involving the vermilion and intr aoral mucosa. 3. Uncontrolled bleeding from the right maxillary wound. PROCEDURE PERFORMED 1. Control of bleeding from right maxillary wound with local surgical techniques. 2. Wound washout and layered closure of a 4 cm complex laceration of the right upper lip, involving the vermilion and the intraoral mucosa. 3. Wash out of wound in layered closure of the right lower lip laceration, 2 cm in length, complex, full thickness. PRIMARY SURGEON: Filippo Dill DDS LOCATION OF PROCEDURE: Emergency room. ANESTHESIA TYPE: Local anesthesia only. DRAINS, PACKS, CATHETERS: None. COMPLICATIONS: None. ESTIMATED BLOOD LOSS: 300 mL of total blood loss from the time the patient arrived in the emergency room, judging based off the amount of blood in the suction container on the wall. INDICATIONS FOR PROCEDURE: Patient is a 69-year-old male who was at his home when he felt numbness i n his leg, resulting in a fall. He struck his face on a furniture object or a shelf in his house michaela t had a safety glass covering; however, the glass did not cause a laceration. He believes it was a p iece of wood from the furniture that caused the laceration. Afterwards, he noticed a large amount of bleeding and, because of the bleeding, he lost consciousness. From his report, it sounds like vasov agal syncope. He was brought to the emergency room by ambulance, and was evaluated and OMFS was cons ulted for evaluation and management of the lacerations. It was decided that control of the bleeding was indicated, as well as repair of the lacerations. The risks, benefits and alternatives of this pl an were discussed with patient including pain, bleeding, swelling, infection, need for further surger y, scarring, permanent numbness, difficulty with speech. Adequate time was given to answer all quest ions and informed consent was obtained. DESCRIPTION OF PROCEDURE: The patient was encountered in the emergency room in a supine position. T he head of his bed was reclined to about 20 degrees, and the patient's hands, chest, neck and face we re initially cleansed while gauze was packed onto the wound to slow the bleeding. The mouth was suct ioned of blood and, once the patient was mostly clean and an IV was started and he was a little bit m ore relaxed, then we proceeded with the local anesthesia. Local anesthesia was achieved with 2% lido lacie with 1:100,000 epinephrine x7 mL. Interestingly, he did not feel any of the injection in the m axilla, at least not in the right V2 area, and this seemed to indicate that the patient had injured h is infraorbital nerve on the right causing this numbness. At this point, a formal timeout was execut ed. The patient's wounds were then washed out extensively with copious amounts of sterile saline bernabe ution, taking care to suction this from the mouth and allow the patient to remain comfortable, and no t cough and sputter too much on the fluid as we washed out his wounds. Attention was first directed to the right upper lip. The bleeding area was identified and multiple deep sutures were placed in th is area to attempt to stop the bleeding. It appeared to slow the bleeding, but it did not stop right away. After this, sutures were placed through the orbicularis jamison muscle, and it reapproximated we ll and easily. After this, 4-0 Vicryl sutures were placed through the oral mucosa portion of the lac eration and this did cause good control of the bleeding. The vermilion was then closed with 6-0 Prol vannessa suture in an interrupted fashion. Attention was then directed to the mandible. The orbicularis jamison muscle was reapproximated using 4-0 Vicryl suture. The oral mucosal layer was r eapproximated using 4-0 Vicryl suture and the vermilion layer was reapproximated using 6-0 Prolene squires ture. The patient was then reevaluated and found to be completely hemostatic. He was comfortable an d he was asking to be discharged home. At this point, the care of patient was returned to the emerge ncy room staff and he was in stable condition at the time of the transfer of care. TD: 10/06/2019 22:07
== END 2019-10-06 22:10 | disposition home or self-care (01) ==
LOC: EDUNIT# → EDBD → ED 18:51
DX: S02.2XXA Fracture of nasal bones, initial encounter for closed fracture (principal); S01.511A Laceration without foreign body of lip, initial encounter; S01.512A Laceration without foreign body of oral cavity, initial encounter; S09.12XA Laceration of muscle and tendon of head, initial encounter; W01.190A Fall on same level from slipping, tripping and stumbling with subsequent striking against furniture, initial encounter; Y92.009 Unspecified place in unspecified non-institutional (private) residence as the place of occurrence of the external cause; R20.0 Anesthesia of skin; E11.9 Type 2 diabetes mellitus without complications; Z79.4 Long term (current) use of insulin; N28.9 Disorder of kidney and ureter, unspecified; Z99.2 Dependence on renal dialysis; Z79.82 Long term (current) use of aspirin
CPT/HCPCS: 13152; 36415; 70450; 70486; 80053; 81001; 83690; 85025; 96374; 99284; 99285; J2060; 81003; 87086

== ENCOUNTER 2020-08-07 09:08 | Outpatient (CLI) | payer MEDICARE, OTHER ==
--- NOTE | 2020-08-07 11:20 | XRAY Report ---
PROCEDURE: Chest 2 View X-Ray INDICATIONS: ESRD TECHNIQUE: 2 view(s) of the chest. COMPARISON: 06/28/2016 FINDINGS: Surgical changes and devices: None. Lungs and pleura: No pleural effusions or pneumothorax. Lungs demonstrate mildly increased intersti tial markings but no consolidation or abnormal airspace opacity. Mediastinum: Mediastinal contours are normal. Heart size mildly enlarged. Bones and chest wall: No suspicious bony abnormalities. Soft tissues appear unremarkable. IMPRESSION: Mild cardiomegaly and increased interstitial markings consistent with pulmonary edema. T his is presumably related to volume overload as a function of renal disease, potentially with an [place] ent of superimposed congestive heart failure. These findings have mildly worsened when compared with June 2016 exam. Reviewed by: Grover Dobson MD on 08/07/2020 11:19 AM PDT Approved by: Grover Dobson MD on 08/07/2020 11:19 AM PDT Station ID: [id number]
== END 2020-08-07 09:09 | disposition home or self-care (01) ==
LOC: DI.N 09:08
PROVIDERS: ATTEND Internal Medicine Nephrology
DX: Z01.812 Encounter for preprocedural laboratory examination (principal); I51.7 Cardiomegaly; R91.8 Other nonspecific abnormal finding of lung field; N18.6 End stage renal disease; Z13.9 Encounter for screening, unspecified; Z20.822 Contact with and (suspected) exposure to COVID-19
CPT/HCPCS: 71046; U0004

== ENCOUNTER 2020-08-07 09:12 | Outpatient (CLI) | payer MEDICARE, OTHER | END 2020-08-07 09:13 | disposition home or self-care (01) | LOC: LAB.N 09:12 | PROVIDERS: ATTEND Internal Medicine Nephrology | DX: Z01.812 Encounter for preprocedural laboratory examination (principal); Z20.822 Contact with and (suspected) exposure to COVID-19 ==

== ENCOUNTER 2020-09-18 07:50 | Outpatient (CLI) | payer MEDICARE, OTHER ==
--- NOTE | 2020-09-22 17:06 | Ultrasound Report ---
PROCEDURE: Duplex Lwr Ext Arterial Bilat INDICATIONS: PAD R FOOT ULCER TECHNIQUE: Color and pulse Doppler interrogation was performed of both lower extremity arterial systems, with im age documentation. COMPARISON: None FINDINGS: Right lower extremity: Common femoral artery: 111 cm/sec, with biphasic flow. Deep femoral artery: 90 cm/sec, with biphasic flow. Proximal superficial femoral artery: 56 cm/sec, with biphasic flow. Mid superficial femoral artery: 67 cm/sec, with biphasic flow. Distal superficial femoral artery: 82 cm/sec, with biphasic flow. Popliteal artery: 70 cm/sec, with biphasic flow. Posterior tibial artery: 66 cm/sec, with monophasic flow. Anterior tibial artery/dorsalis pedis: 138, 32 cm/sec, with biphasic flow. Joseph-scale imaging description: Diffuse plaque. Less than 50% popliteal stenosis. No other stenoses identified above the trifurcation. Small vessel disease. Left lower extremity: Common femoral artery: 111 cm/sec, with triphasic flow. Deep femoral artery: 71 cm/sec, with triphasic flow. Proximal superficial femoral artery: 75 cm/sec, with biphasic flow. Mid superficial femoral artery: 83 cm/sec, with biphasic flow. Distal superficial femoral artery: 50 cm/sec, with biphasic flow. Popliteal artery: 43 cm/sec, with biphasic flow. Posterior tibial artery: 53 cm/sec, with monophasic flow. Anterior tibial artery/dorsalis pedis: 90, 61 cm/sec, with biphasic flow. Joseph-scale imaging description: Diffuse plaque. Mild profundus stenosis. Mild diffuse popliteal dise ase. No hemodynamically significant stenosis above the trifurcation. Anterior tibial and posterior ti bial stenotic disease. IMPRESSION: 1. No evidence of inflow disease. 2. Right lower extremity runoff significant for diffuse plaque without hemodynamically significant st enosis through the popliteal artery. There is small vessel disease. 3. Left lower extremity runoff significant for diffuse plaque including diffuse mild popliteal stenot ic disease without hemodynamically significant stenosis above the trifurcation. There is small vessel disease. Reviewed by: Ramon Emerson MD on 09/18/2020 10:50 AM PDT Approved by: Ramon Emerson MD on 09/18/2020 10:50 AM PDT Station ID: [id number]
== END 2020-09-18 07:51 | disposition home or self-care (01) ==
LOC: DI 07:50
PROVIDERS: ATTEND Internal Medicine Gastroenterology
DX: I73.9 Peripheral vascular disease, unspecified (principal); L97.519 Non-pressure chronic ulcer of other part of right foot with unspecified severity
CPT/HCPCS: 93925

== ENCOUNTER 2020-09-18 07:50 | Outpatient (CLI) | payer MEDICARE, OTHER ==
--- NOTE | 2020-09-18 10:31 | CT Report ---
PROCEDURE: Abdomen/Pelvis WO INDICATIONS: TYPE 2 [place] W/ERD TECHNIQUE: Noncontrast 5 mm thick sections acquired from the diaphragms to the symphysis. 5 mm coronal and sagi ttal reformats were then performed. For radiation dose reduction, the following was used: automated exposure control, adjustment of mA and/or kV according to patient size. COMPARISON: None. FINDINGS: Multilevel hernia. No acute abnormality ABDOMEN: Lung bases: Normal Heart:Coronary artery calcifications are present, severe. Heart is enlarged Liver: Normal Gallbladder: Normal. Bile ducts: Normal Pancreas: Normal Spleen: Normal Adrenals: Normal. Kidneys: Bilateral renal cortical atrophy and scarring. No hydronephrosis. Since bilateral perihilar vascular calcifications. Suboptimal evaluation of the renal vessels secondary to absence of IV contra st. There is extensive after chronic plaque at the origin of the right renal artery, and mild plaque at the origin of the left renal artery. Stomach: Distended appearance otherwise unremarkable. Bowel: Colonic diverticulosis incidentally noted. There is questionable low-grade mural thickening of the sigmoid colon for example image 79/3 raising possibility of chronic versus acute on chronic mild diverticulitis. Other: No free fluid or air. Abdominal nodes: Normal Aorta: Scattered vascular calcifications are present in the aorta. . IVC: Normal. Ventral wall: Small periumbilical fat-containing hernia. PELVIS: Bladder: Normal. Pelvic nodes: Normal. Inguinal: No hernia. Bones: Spondylosis and diffuse facet arthropathy. Diffuse osteopenia. IMPRESSION: Bilateral renal cortical atrophy and scarring. Incidental colonic diverticulosis with questionable low-grade mural thickening of the sigmoid colon w ith differential as above. Severe coronary artery disease. Diffuse atherosclerotic vascular calcifications. Reviewed by: Jaime Peoples MD on 09/18/2020 10:30 AM PDT Approved by: Jaime Peoples MD on 09/18/2020 10:30 AM PDT Station ID: [id number]
== END 2020-09-18 07:51 | disposition home or self-care (01) ==
LOC: DI 07:50
PROVIDERS: ATTEND Transplant Surgery
DX: E11.22 Type 2 diabetes mellitus with diabetic chronic kidney disease (principal); N18.6 End stage renal disease; N26.1 Atrophy of kidney (terminal); I73.9 Peripheral vascular disease, unspecified; L97.519 Non-pressure chronic ulcer of other part of right foot with unspecified severity
CPT/HCPCS: 93925

== ENCOUNTER 2020-10-18 10:13 | Emergency (ER) | payer MEDICARE, OTHER ==
--- OUTSIDE RECORDS SUMMARY | 2020-10-18 10:17 | EXTERNAL MEDICAL SUMMARY RPT | Continuity of Care Document ---
:1950 Demographics Phone Unavailable Preferred Language Unknown Marital Status Unknown Orthodox Affiliation Unknown Race Unknown Ethnic Group Unknown Author Organization [facility] Address [address] [place] [address] Phone Care Team Providers Name Role Phone PA-C Unavailable Unavailable Registrar Unavailable Unavailable Allergies Encounters Medications Problems date description facility 20200722 Wound Care All 20200722 Ulcer of lower limb, unspecified All 20200722 Ulcer of foot All 20200722 Total score? All 20200722 Non-pressure chronic ulcer of other part of right foot with All unspecified severity 20200722 Former smoker All 20200722 Details of drug misuse behavior All 20200722 Alcohol use All 20200722 No current problems or disability - unk nown All Results Vital Signs date measurement value source 20200722 weight_standard 255 lb 20200722 weight_metric 115.67 kg 20200722 temperature_standard 97.6 F 20200722 temperature_metric 36.44 C 20200722 respiration_rate 17 /min 20200722 height_standard 71 in 20200722 height_metric 180.34 cm 20200722 heart_rate 72 /min 20200722 BP_systolic 168 mm[Hg] 20200722 BP_diastolic 70 mm[Hg] 20200722 BMI 35.69 kg/m2
[2020-10-18 11:15] LABS: BASOPHILS # (AUTO) 0.1 10^3/uL (0.0-0.1); BASOPHILS % (AUTO) 0.9 %; EOSINOPHILS # (AUTO) 0.3 10^3/uL (0.0-0.7); EOSINOPHILS % (AUTO) 4.2 %; HCT - HEMATOCRIT 36.1 % (42.0-52.0); LYMPHOCYTES # (AUTO) 1.2 10^3/uL (1.5-3.5); LYMPHOCYTES % (AUTO) 15.3 %; MEAN CORPUSCULAR HEMOGLOBIN 35.4 pg (27.0-31.0); MEAN CORPUSCULAR HGB CONC 33.2 g/dL (32.0-36.0); MEAN CORPUSCULAR VOLUME 106.5 fL (80.0-94.0); MEAN PLATELET VOLUME 11.2 fL (7.4-11.4); MONOCYTES # (AUTO) 0.8 10^3/uL (0.0-1.0); MONOCYTES % (AUTO) 10.5 %; NEUTROPHILS # (AUTO) 5.3 10^3/uL (1.5-6.6); NEUTROPHILS % (AUTO) 68.8 %; PLT - PLATELET COUNT 228 10^3/uL (130-450); RED BLOOD COUNT 3.39 10^6/uL (4.70-6.10); RED CELL DISTRIBUTION WIDTH 13.8 % (12.0-15.0); WHITE BLOOD COUNT 7.6 x10^3/uL (4.8-10.8)
--- OUTSIDE RECORDS SUMMARY | 2020-10-18 11:24 | EXTERNAL MEDICAL SUMMARY RPT | Continuity of Care Document ---
:1950 Demographics Phone Unavailable Preferred Language Unknown Marital Status Unknown Anabaptist Affiliation Unknown Race Unknown Ethnic Group Unknown Author Organization [facility] Address [address] [place] [address] Phone Care Team Providers Name Role Phone ADDIS, Darwin Devlin, Unavailable Unavailable Registrar, Dede Rich, Patient Unavailable Unava ilable Allergies Encounters Medications Problems date description facility [...]
[2020-10-18 11:42] LABS: ALBUMIN 3.8 g/dL (3.2-5.5); ALBUMIN/GLOBULIN RATIO 1.2 (1.0-2.2); BILIRUBIN,TOTAL 0.8 mg/dL (0.2-1.0); CALCIUM 8.8 mg/dL (8.5-10.3); CREATININE 5.7 mg/dL (0.6-1.2); MAGNESIUM 2.1 mg/dL (1.7-2.8); POTASSIUM 4.3 mmol/L (3.5-5.0); TOTAL PROTEIN 6.9 g/dL (6.7-8.2)
--- NOTE | 2020-10-18 11:51 | CT Report ---
PROCEDURE: LUMBAR SPINE WO INDICATIONS: right leg weakness; recent falls TECHNIQUE: Noncontrast 3 mm thick sections acquired from the T12 level to the sacrum. Sagittal and coronal refo rmats were constructed. For radiation dose reduction, the following was used: automated exposure co ntrol, adjustment of mA and/or kV according to patient size. COMPARISON: Correlation is made with the accompanying head CT, 10/18/2020. Correlation is made with t he prior abdomen and pelvis CT, 09/18/2020. FINDINGS: Image quality: Excellent. Bones: No acute vertebral body compression fractures. No suspicious lytic or blastic bony lesions. No pars defects. There is minimal retrolisthesis seen at L1-L2, L2-L3, and L3-L4. T12-L1: Bridging anterior osteophytes are seen. No significant neural foraminal or central canal conor rowing can be seen. L1-L2: The disc height is well-preserved. Vacuum disc phenomenon is seen at this level. At leas t moderate disc bulge is seen. Bridging endplate osteophytes are seen anteriorly and on the right danay e. Mild facet hypertrophy is seen. There is at least moderate bilateral neuroforaminal narrowing se en. Moderate central canal narrowing is seen. L2-L3: The disc height is well-preserved. Vacuum disc phenomenon is seen at this level. Moderat e disc bulge is seen at this level. Mild facet hypertrophy is seen. There is at least moderate catina ateral neuroforaminal narrowing. Moderate central canal narrowing is seen. L3-L4: Mild loss of disc height is seen. At least moderate disc bulge is seen at this level. There is at least moderate bilateral neuroforaminal narrowing seen. Mild to moderate central canal narrowin g is seen. L4-L5: The disc height is well-preserved. Vacuum disc phenomenon is seen at this level. Moderate to prominent disc bulge is seen, with a central disc extrusion. Calcification is seen along the post erior aspect of the annulus fibrosis. At least moderate facet hypertrophy can be seen at this level. There is at least moderate bilateral neuroforaminal narrowing seen. There is severe central canal conor rowing. L5-S1: Mild loss of disc height is seen. Vacuum disc phenomenon is seen at this level. Endplate i rregularity and sclerosis can be seen. Moderate disc bulge is seen at this level, which is eccentr ic to the left. There is minimal right-sided and at least moderate left-sided neuroforaminal narrowi ng seen. Soft tissues: No retroperitoneal masses or hematomas. Visualized aorta is normal in caliber. Dense atherosclerotic calcification of the aorta and its branches can be seen. Bilateral renal atrophy is again noted. Diverticulosis can be seen, without michael findings of active diverticulitis. IMPRESSION: No michael, acute fractures can be seen in this patient with a given history of a fall. Multiple levels of degenerative change are seen, which are worst at L4-L5, where there is severe cent ral canal narrowing. When clinically appropriate, please consider a dedicated lumbar MRI for further evaluation. Incidental note is made of: Prominent atherosclerotic calcification Atrophic kidneys Diverticulosis can be seen, without active diverticulitis. Reviewed by: Robert Traylor MD on 10/18/2020 10:50 AM GIGI Approved by: Robert Traylor MD on 10/18/2020 10:50 AM GIGI Station ID: [id number]
--- NOTE | 2020-10-18 11:54 | CT Report ---
PROCEDURE: HEAD WO INDICATIONS: right leg weakness; recent falls TECHNIQUE: Noncontrast 4.5 mm thick angled axial sections acquired from the foramen magnum to the vertex. For r adiation dose reduction, the following was used: automated exposure control, adjustment of mA and/or kV according to patient size. COMPARISON: 10/31/2017, 10/06/2019. Correlation is also made with the accompanying lumbar spine CT, . FINDINGS: Image quality: Excellent. CSF spaces: Basal cisterns are patent. No extra-axial fluid collections. Ventricles are stable, wi th ex vacuo dilatation seen of the left lateral ventricle. Brain: No midline shift. No intracranial masses or hemorrhage. Joseph-white matter interface is norm al. Age-appropriate brain parenchymal volume loss and chronic small vessel ischemic change can be se en. Areas of prior infarction can be seen, including the left frontal lobe superiorly. Skull and face: Calvarium and visualized facial bones are intact, without suspicious lesions. Sinuses: Visualized sinuses and mastoids are clear. IMPRESSION: No intracranial hemorrhage is seen. No significant intracranial abnormality is seen. 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 There is associated ex vacuo dilatation of the left lateral ventricle. Age-appropriate brain parenchymal volume loss and chronic small vessel ischemic change can be seen. Reviewed by: Robert Traylor MD on 10/18/2020 10:53 AM GIGI Approved by: Robert Traylor MD on 10/18/2020 10:53 AM GIGI Station ID: [id number]
[2020-10-18 13:23] VITALS: BP 158/73
--- NOTE | 2020-10-18 13:56 | ED Physician Documentation ---
PD HPI FOCAL NEURO - Stated complaint Stated Complaint: STROKE LIKE SYMPTOMS - Chief complaint Chief Complaint: Neuro - History obtained from History obtained from: Patient, Family - History of Present Illness Timing - onset: How many weeks ago (1) Timing - duration: Weeks (1) Timing - details: Gradual onset (daughter states the patient seems to have i ncreased weakness of right leg and also right arm at times. No facial weakness. having trouble walking due to leg weakness. Previously had used walker, now needs wheelchair at times. Has had prior ankle injury with brace right ankle and some leg weak prior.), Still present, Waxing and waning Severity of deficit: Moderate Weakness: Arm, Leg, Right. No: Face Numbness: No: Face, Arm, Leg Associated symptoms: Back pain (lower back intermittently). No: Headache, Nausea / vomiting, Neck pain Baseline status: positive: Walker, Wheelchair Recently seen: Clinic (get dialysis 3 times weekly, with last being yesterday) Review of Systems Constitutional: denies: Fever, Chills Nose: denies: Rhinorrhea / runny nose, Congestion Throat: denies: Sore throat Respiratory: denies: Cough GI: denies: Vomiting, Diarrhea Skin: denies: Rash, Lesions Neurologic: reports: Focal weakness (right lower leg, intermittently right arm.). denies: Numbness, Confused, Altered mental status, Headache PD PAST MEDICAL HISTORY - Past Medical History Cardiovascular: Congestive heart failure, Hypertension, High cholesterol, Coronary artery disease, Atrial fibrillation (in the past, not currently, and has Watchman placed on heart to detect abn rhythms. ) Respiratory: CPAP use Neuro: CVA Endocrine/Autoimmune: Type 2 diabetes GI: None : Dialysis, Renal insuffiency HEENT: None Psych: None Musculoskeletal: Osteoarthritis Derm: None - Past Surgical History Past Surgical History: Yes General: Appendectomy Ortho: Knee replacement, Other Cardiovascular: Coronary stent, Other - Present Medications Home Medications: Ambulatory Orders Medication Instructions Recorded Confirmed Atorvastatin Calcium [Lipitor] 80 mg PO DAILY 09/05/14 08/07/20 Fenofibrate [Fenoglide] 145 mg PO DAILY 09/05/14 08/07/20 Furosemide [Lasix] 3 tab PO DAILY 09/05/14 08/07/20 Insulin Glargine [Lantus] 22 units SQ BID 09/05/14 08/07/20 Metoprolol Succinate 100 mg PO DAILY 09/05/14 08/07/20 amLODIPine [Norvasc] 10 mg PO DAILY 10/06/19 08/07/20 Aspirin [Melodie] 325 mg PO ONCE 08/07/20 08/07/20 Multivitamin 1 tab PO DAILY 08/07/20 08/07/20 - Allergies Allergies/Adverse Reactions: Allergies Allergy/AdvReac Type Severity Reaction Status Date / Time No Known Drug Allergies Allergy Verified 10/18/20 10:36 - Social History Does the pt smoke?: No Smoking Status: Never smoker Does the pt drink ETOH?: No Does the pt have substance abuse?: No - Immunizations Immunizations are current?: Yes PD ED PE NORMAL - Vitals Vital signs reviewed: Yes - General General: Alert and oriented X 3, No acute distress, Well developed/nourished - Neck Neck: Supple, no meningeal sign, No adenopathy - Cardiac Cardiac: RRR, No murmur - Respiratory Respiratory: Clear bilaterally - Abdomen Abdomen: Soft, Non tender - Back Back: No spinal TTP - Derm Derm: Normal color, Warm and dry - Neuro Neuro: Alert and oriented X 3, 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 Right arm is normal strength. ) NIHSS - Level of Consciousness Level of consciousness: (0) Alert, Keenly responsive LOC Questions: (0) Answers both Q's correct LOC Commands: (0) Performs both correctly - Gaze Best Gaze: (0) Normal - Visual Visual: (0) No loss - Facial Palsy Facial Palsy: (0) Normal, symmetrical movement - Motor Arms (both separate) Motor Arm (right): (0) No drift Motor Arm (left): (0) No drift - Motor Legs (both separate) Motor Leg (right): (1) Drift Motor Leg (left): (0) No drift - Limb Ataxia Limb Ataxia: (0) Absent - Sensory Sensory: (0) Normal - Best Language Best Language: (0) No aphasia - Dysarthria Dysarthria: (0) Normal - Extinction and Inattention (formally neg Extinction and inattention: (0) No abnormality - Total Score/Results Total Score/Result: 1 Results - Vitals Vitals: Vital Signs - 24 hr 10/18/20 10/18/2010/18/21 10:19 11:13 12:00 Temperature 36.9 C Heart Rate 59 L 60 64 Respiratory 16 16 16 Rate Blood Pressure 158/58 H 142/57 H 148/62 H O2 Saturation 99 100 99 10/18/20 10/18/20 12:30 13:00 Temperature Heart Rate 72 62 Respiratory 16 16 Rate Blood Pressure 154/56 H 158/73 H O2 Saturation 99 100 Oxygen O2 Source Room air - Labs Labs: Laboratory Tests 10/18/20 10/18/20 10:42 10:42 WBC 7.6 RBC 3.39 L Hgb 12.0 L Hct 36.1 L MCV 106.5 H MCH 35.4 H MCHC 33.2 RDW 13.8 Plt Count 228 MPV 11.2 Neut # (Auto) 5.3 Lymph # (Auto) 1.2 L [place] # (Auto) 0.8 Eos # (Auto) 0.3 Baso # (Auto) 0.1 Absolute Nucleated RBC 0.00 Nucleated RBC % 0.0 Sodium 134 L Potassium 4.3 Chloride 97 L Carbon Dioxide 22 Anion Gap 15.0 H BUN 44 H Creatinine 5.7 H Estimated GFR (MDRD) 10 L Glucose 200 H Calcium 8.8 Magnesium 2.1 Total Bilirubin 0.8 AST 38 ALT 31 Alkaline Phosphatase 36 L Total Creatine Kinase 237 Total Protein 6.9 Albumin 3.8 Globulin 3.1 Albumin/Globulin Ratio 1.2 Lipase 54 H - Rads (name of study) head CT Radiology: Prelim report reviewed (atrophy with enlarged ventricles. Prior CVA noted. No change from prior head CT. ), See rad report PD MEDICAL DECISION MAKING - ED course Complexity details: reviewed results (head CT showing atrophy and prior CVA. No new changes. ), considered differential, d/w patient, d/w family (daughter), d/w senior treasury consultant (Social W[employer]k [employer] talked with patient/daughter about home health aides and other assistance. Daughter did not want to fill out any forms at this time, per SW. ) ED course: No acute changes on CT. Symptoms have been a week. Mainly right leg so could be from low back rather than central. CT lumbar without acute process to suggest cord impingement. Consider nerve root/sciatic. Or muscle strength. Discussed potential MRI to assess if small CVA. Main issue now would be function at home, so had SW talk with them about assistance vs if they feel need for placement. Departure - Departure Disposition: 01 Home, Self Care Clinical Impression: Right leg weakness Condition: Stable Record reviewed to determine appropriate education?: Yes Instructions: ED Weakness UKO Follow-Up: Chhaya Abdi MD [Provider Admit Priv/Credential] - Comments: Follow-up with her primary care and Dr. Abdi regarding further evaluation of the leg weakness. Continue with the ankle brace and a walker. The social media designer gave you material regarding home health aides and further assistance. She said you could qualify for a fair amount of added assistance through the [facility] and your primary care. Discharge Date/Time: 10/18/20 14:02
== END 2020-10-18 14:02 | disposition home or self-care (01) ==
LOC: ED 10:13
DX: R29.898 Other symptoms and signs involving the musculoskeletal system (principal); R53.1 Weakness; Z86.73 Personal history of transient ischemic attack (TIA), and cerebral infarction without residual deficits; M47.816 Spondylosis without myelopathy or radiculopathy, lumbar region; N28.9 Disorder of kidney and ureter, unspecified; Z99.2 Dependence on renal dialysis; I10 Essential (primary) hypertension; E11.9 Type 2 diabetes mellitus without complications; Z79.4 Long term (current) use of insulin; Z79.82 Long term (current) use of aspirin
CPT/HCPCS: 36415; 80053; 82550; 83690; 83735; 85025; 99284

== ENCOUNTER 2020-10-20 03:36 | Outpatient (CLI) | payer MEDICARE, OTHER | END 2020-10-20 03:37 | disposition EMS.NT | LOC: EMS 03:36 | DX: Z03.89 Encounter for observation for other suspected diseases and conditions ruled out (principal) ==

== ENCOUNTER 2020-10-22 02:03 | Outpatient (CLI) | payer MEDICARE, OTHER | END 2020-10-22 02:04 | disposition EMS.NT | LOC: EMS 02:03 | DX: Z03.89 Encounter for observation for other suspected diseases and conditions ruled out (principal) ==

== ENCOUNTER 2020-10-22 16:33 | Outpatient (CLI) | payer MEDICARE, OTHER | END 2020-10-22 16:34 | disposition short-term general hospital (02) | LOC: EMS 16:33 | DX: S49.92XA Unspecified injury of left shoulder and upper arm, initial encounter (principal); W18.39XA Other fall on same level, initial encounter; Y93.89 Activity, other specified; Y92.009 Unspecified place in unspecified non-institutional (private) residence as the place of occurrence of the external cause | CPT/HCPCS: A0425; A0427 ==